=== PATIENT | male | born 2000 | race Caucasian/White ===

== ENCOUNTER 2018-08-16 13:08 | Emergency (ER) | payer BC ==
[2018-08-16 13:46] LABS: PLATELET COUNT 305 10^3/uL (150-400)
--- NOTE | 2018-08-16 14:04 | EDPHY ---
H & P Time Seen by Provider: 08/16/18 13:32 HPI/ROS: CHIEF COMPLAINT: Seizure HISTORY OF PRESENT ILLNESS: The patient is a 18-year-old male who presents emergency department after having seizure. 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 Patient drank heavily last evening. Today he was sitting with his friends. He subsequently had seizure- like activity per their report. He does not recall the event. Patient states he has had 1 previous seizure. This also occurred after a night of heavy drinking. He currently has an MRI scheduled as well as an EEG with Dr. Clayton. The patient denies any drug use. No recent trauma. REVIEW OF SYSTEMS: 10 systems were reveiwed and are negative with the exception of the elements mentioned in the history of present illness. Past Medical/Surgical History: Previous seizure Social history: Alcohol abuse Smoking Status: Never smoked Physical Exam: Vitals noted GENERAL: Well-appearing, in no acute distress, alert. No incontinence. HEENT: Eyes normal to inspection, normal pharynx, no signs of dehydration. No laceration. NECK: Normal, supple. RESPIRATORY: Clear to auscultation bilaterally, no rales, rhonchi or wheezing. CVS: Regular rate and rhythm, no rubs, murmurs, or gallops. ABDOMEN: Soft, nontender, nondistended, no organomegaly. BACK: Normal to inspection, no CVA tenderness. SKIN: Normal color, no rash, warm, dry. No pallor. EXTREMITIES: No pedal edema, no calf tenderness, no Homans sign or cords, no joint swelling. NEURO/PSYCH: Higher functions: Alert and Oriented x3. Normal speech and cognition. Normal mood and affect. Cranial nerves: Normal as tested. Cerebellar: Normal as tested. Good finger to nose, good [id number], normal gait. Peripheral exam: Normal motor exam. Normal sensation. Normal reflexes. Constitutional: Initial Vital Signs Temperature (C) 36.6 C 08/16/18 13:08 Heart Rate 102 H 08/16/18 13:08 Respiratory Rate 16 08/16/18 13:08 Blood Pressure 141/74 H 08/16/18 13:08 O2 Sat (%) 94 08/16/18 13:08 O2 Delivery Mode Room Air Allergies/Adverse Reactions: No Known Allergies Allergy (Verified 08/16/18 13:36) Home Medications: Medication Instructions Recorded levETIRAcetam [Keppra 500 mg (*)] 500 mg PO BID 30 Days tab 08/16/18 Medical Decision Making ED Course/Re-evaluation: In the emergency department I discussed possible etiologies with the patient. I answered all of his questions. Laboratory studies, EKG and head CT were ordered. EKG shows normal sinus rhythm, normal rate, normal axis, normal intervals. There are no ST or T-wave abnormalities. EKG is normal as interpreted by me. White count elevated 18,000. The patient's hematocrit is high at 54. Patient's chemistry panel is notable for a low CO2 of 11 and an elevated anion gap at 33. I discussed case with Dr. Clayton from Neurology. He recommend the patient start on Keppra. Patient was given Keppra 500 mg orally and given a prescription. Head CT: Please refer the dictated report by Dr. Doni Cheney. No acute disease noted. I discussed the results with the patient. I answered all his questions. Patient is aware that he is to start Keppra. Differential Diagnosis: My differential includes but is not limited to seizure, epilepsy, subarachnoid hemorrhage, subdural hematoma, epidural hematoma, alcohol withdrawal seizure, ischemic CVA, hemorrhagic CVA, dissection, mass, malignancy - Data Points Laboratory Results: Laboratory Results 08/16/18 13:00 08/16/18 13:00 08/16/18 08/16/18 13:00 13:00 WBC 18.60 10^3/uL H 10^3/uL (3.80-9.50) RBC 5.84 10^6/uL 10^6/uL (4.40-6.38) Hgb 17.8 g/dL H g/dL (13.7-17.5) Hct 54.5 % H % (40.0-51.0) MCV 93.3 fL fL (81.5-99.8) MCH 30.5 pg pg (27.9-34.1) MCHC 32.7 g/dL g/dL (32.4-36.7) RDW 12.6 % % (11.5-15.2) Plt Count 305 10^3/uL 10^3/uL (150-400) MPV 11.1 fL fL (8.7-11.7) Neut % (Auto) 55.3 % % (39.3-74.2) Lymph % (Auto) 34.1 % % (15.0-45.0) [place] % (Auto) 7.6 % % (4.5-13.0) Eos % (Auto) 1.5 % % (0.6-7.6) Baso % (Auto) 0.5 % % (0.3-1.7) Nucleat RBC Rel Count 0.0 % % (0.0-0.2) Absolute Neuts (auto) 10.29 10^3/uL H 10^3/uL (1.70-6.50) Absolute Lymphs (auto) 6.34 10^3/uL H 10^3/uL (1.00-3.00) Absolute Monos (auto) 1.41 10^3/uL H 10^3/uL (0.30-0.80) Absolute Eos (auto) 0.28 10^3/uL 10^3/uL (0.03-0.40) Absolute Basos (auto) 0.09 10^3/uL 10^3/uL (0.02-0.10) Absolute Nucleated RBC 0.00 10^3/uL 10^3/uL (0-0.01) Immature Gran % 1.0 % % (0.0-1.1) Immature Gran # 0.19 10^3/uL H 10^3/uL (0.00-0.10) RBC/WBC/PLT Morphology TNP Platelet Estimate TNP Sodium 148 mEq/L H mEq/L (135-145) Potassium 4.4 mEq/L mEq/L (3.3-5.0) Chloride 104 mEq/L mEq/L (97-110) Carbon Dioxide 11 mEq/l L mEq/l (22-31) Anion Gap 33 mEq/L H mEq/L (8-16) BUN 10 mg/dL mg/dL (7-23) Creatinine 1.2 mg/dL mg/dL (0.7-1.3) Estimated GFR > 60 Glucose 82 mg/dL mg/dL (70-100) Calcium 10.4 mg/dL mg/dL (8.5-10.4) Ethyl Alcohol 72 mg/dL H mg/dL (0-10) Medications Given: Discontinued Medications Levetiracetam (Keppra) 500 mg PO EDNOW ONE Stop: 08/16/18 14:22 Last Admin: 08/16/18 14:35 Dose: 500 mg Departure - Departure Disposition: Home, Routine, Self-Care Clinical Impression: Seizure Condition: Good Instructions: Recurrent Seizures in Adults (ED) Additional Instructions: Keep your follow-up appointment with Dr. Dimas Clayton. Avoid drinking alcohol. Your head CT and laboratory studies were unremarkable. Referrals: Sol Francois MD [Medical Doctor] - 5-7 days, call for appt. Prescriptions: levETIRAcetam [Keppra 500 mg (*)] 500 mg PO BID 30 Days tab
[2018-08-16] MEDS ORDERED: levETIRAcetam 500 MG TAB PO ONE (14:21)
[2018-08-16 15:12] VITALS: BP 129/72
--- NOTE | 2018-08-16 19:46 | CPEKG ---
Test Reason : OPEN Blood Pressure : / mmHG Vent. Rate : 095 BPM Atrial Rate : 095 BPM P-R Int : 132 ms QRS Dur : 078 ms QT Int : 358 ms P-R-T Axes : 068 092 037 degrees QTc Int : 450 ms Sinus rhythm Borderline right axis deviation ST elev, probable normal early repol pattern Confirmed by Beto Carnes ([id number]) on 08/16/2018 7:46:28 PM Referred By: Confirmed By:Beto Carnes
== END 2018-08-16 15:08 | disposition home or self-care (01) ==
LOC: EDUNIT#
DX: R56.9 Unspecified convulsions (principal)
CPT/HCPCS: G0480

== ENCOUNTER → 2018-08-26 | Outpatient (CLI) | payer BC ==
[~2018-08-26] MED LIST: GADOBUTROL 10 ML VIAL IVP ONE
== END ==
LOC: FIMAGING 08:14
PROVIDERS: ATTEND Psychiatry & Neurology Neurology
DX: R56.9 Unspecified convulsions (principal); J32.9 Chronic sinusitis, unspecified
CPT/HCPCS: A9585

== ENCOUNTER → 2018-08-28 | Outpatient (CLI) | payer BC ==
--- NOTE | 2018-09-02 12:30 | CPEEG ---
DATE OF STUDY: INTERPRETATION: Normal EEG during wakefulness and sleep. There were no potentially epileptogenic ab normalities present in the recording. REPORT: This EEG contains 10 Hz alpha activity to the posterior head regions. There was no abnormal activation at rest, during photic stimulation, or hyperventilation. The patient became drowsy and f ell asleep during the study. There was no abnormal activation during drowsiness, sleep, or during ti mes of arousal. /[id number]/MODL
== END ==
LOC: FCPNEURO 09:43
PROVIDERS: ATTEND Psychiatry & Neurology Neurology
DX: R56.9 Unspecified convulsions (principal)

== ENCOUNTER 2019-01-02 07:50 | Day surgery (SDC) | payer BC, OTHER ==
[2019-01-02] MEDS ORDERED: BUPIVACAINE 0.5% 30 ML SDV ONE (08:10)
[2019-01-02] MEDS ORDERED: LR 1,000 ML IV ONE (08:42)
[2019-01-02] MEDS ORDERED: ceFAZolin 2 GM/DEXTROSE 100 ML IV ONE (09:26)
--- NOTE | 2019-01-02 09:26 | PDHPUP ---
History & Physical Update H&P update statement: This history and physical update is based on an assessment of the patient which was completed after admission or registration (within 24 hours), but prior to the surgery/procedure. H&P update: H&P reviewed & patient examined (No changes in H or P)
[2019-01-02] MEDS ORDERED: fentaNYL 250 MCG/5 ML INJ ONE (09:29)
[2019-01-02] MEDS ORDERED: PROPOFOL/EMULSION 500 MG/50 ML BOTTLE IV ONE (09:30)
--- NOTE | 2019-01-02 09:31 | POSTOPPROG ---
Post Op Note Date of Operation: 01/02/19 Surgeon: Shemar Jaeger Tag Stringer: none Anesthesiologist: Eri Mclaughlin Anesthesia: IV Sedation Pre-op Diagnosis: Right 5th metacarpal fracture Post-op Diagnosis: same Indication: fracture with displacement Procedure: Fluoroscopic reduction and percutaneous K wire fixation Findings: Fracture 5th metacarpal Inf/Abcess present in the surg proc area at time of surgery?: No Depth: Deep Incisional (Fascial) EBL: Minimal Total fluids administered: 600cc Complications: None Specimen(s): none
[2019-01-02] MEDS ORDERED: MIDAZOLAM 2 MG/2 ML VIAL IVP ONE (09:37)
--- NOTE | 2019-01-02 09:40 | PDANEPAE ---
ANE History of Present Illness 18 year old male for ORIF of right 5th metacarpal. O/w seizure disorder. ANE Past Medical History - Cardiovascular History Hx Hypertension: No Hx Arrhythmias: No Hx Chest Pain: No Hx Coronary Artery / Peripheral Vascular Disease: No Hx CHF / Valvular Disease: No Hx Palpitations: No - Pulmonary History Hx COPD: No Hx Asthma/Reactive Airway Disease: No Hx Recent Upper Respiratory Infection: No Hx Oxygen in Use at Home: No Hx Sleep Apnea: No Pulmonary History Comment: occasional tobbaco and marijuana - Neurologic History Hx Cerebrovascular Accident: No Hx Seizures: Yes Hx Dementia: No Neurologic History Comment: 2 seizures in the past, last one on 08/16/18, possible grand mal seizure - Endocrine History Hx Diabetes: No - Renal History Hx Renal Disorders: No - Liver History Hx Hepatic Disorders: No - Neurological & Psychiatric Hx Hx Neurological and Psychiatric Disorders: Yes Neurological / Psychiatric History Comment: hx of depression. last episode 2 yrs ago - Cancer History Hx Cancer: No - Congenital Disorder History Hx Congenital Disorders: No - GI History Hx Gastrointestinal Disorders: No - Surgical History Prior Surgeries: 5th metacarpal repair. penile ANE Review of Systems Review of systems is: negative Review of Systems: - Exercise capacity METS (RN): 6 METS ANE Patient History - Allergies Allergies/Adverse Reactions: No Known Allergies Allergy (Verified 08/16/18 13:36) - Home Medications Home Medications: Ibuprofen 200 mg PO TID 01/02/19 [Last Taken 01/01/19] - NPO status NPO Since - Liquids (Date): 01/01/19 NPO Since - Liquids (Time): 22:00 NPO Since - Solids (Date): 01/01/19 NPO Since - Solids (Time): 22:00 - Smoking Hx Smoking Status: Current some day smoker - Family Anes Hx Family Hx Anesthesia Complications: no ANE Labs/Vital Signs - Vital Signs Blood Pressure: 124/61 Heart Rate: 73 Respiratory Rate: 16 O2 Sat (%): 99 Height: 177.8 cm Weight: 68.039 kg ANE Physical Exam - Airway Neck exam: FROM Mallampati Score: Class 2 Mouth exam: normal dental/mouth exam - Pulmonary Pulmonary: no respiratory distress - Cardiovascular Cardiovascular: regular rate and rhythym - ASA Status ASA Status: II ANE Anesthesia Plan Anesthesia Plan: GA w LMA
[2019-01-02] MEDS ORDERED: PROMETHAZINE HCL 25 MG/ML INJ IVP PRN (10:30)
[2019-01-02] MEDS ORDERED: MEPERIDINE 25 MG/0.5 ML AMP IVP PRN (10:30)
[2019-01-02] MEDS ORDERED: oxyCODONE IR 5 MG TAB PO PRN (10:30)
[2019-01-02] MEDS ORDERED: NALOXONE HCL 0.4 MG/ML INJ IVP PRN (10:30)
[2019-01-02] MEDS ORDERED: ONDANSETRON 4 MG/2 ML VIAL IVP PRN (10:30)
[2019-01-02] MEDS ORDERED: fentaNYL 100 MCG/2 ML INJ ONE (10:47)
[2019-01-02] MEDS: fentaNYL 100 MCG/2 ML INJ IVP PRN ×2 (10:48→11:20)
--- NOTE | 2019-01-02 10:51 | POSTANESTH ---
Post Anesthetic Evaluation Cardiovascular Status: Normal, Stable Respiratory Status: Normal, Stable Level of Consciousness/Mental Status: Can Participate in Eval Pain Control: Adequate, Prn Tx Ordered Nausea/Vomiting Control: Adequate, Prn Tx Ordered Complications Possibly Related to Anesthesia: None Noted
--- NOTE | 2019-01-02 11:15 | GOP ---
[f rep st] OPERATIVE REPORT DATE OF OPERATION: SURGEON: Shemar Jaeger MD PREOPERATIVE DIAGNOSIS: Right 5th metacarpal fracture. POSTOPERATIVE DIAGNOSIS: Right 5th metacarpal fracture. PROCEDURE PERFORMED: Fluoroscopic reduction and K-wire fixation of 5th metacarpal neck fracture. FINDINGS: INDICATIONS: This patient had previously fractured the 5th metacarpal neck and there was some residu al deformity from that injury. The 5th metacarpal was again fractured and it was felt that correctio n of the bony deformity as completely as possible was his best option. DESCRIPTION OF PROCEDURE: Under local infiltration using 0.5% plain Marcaine, a total of 10 cc and w ith monitored anesthesia care and sedation by anesthesiology, the patient's right hand and forearm we re prepped and draped in the usual fashion and under fluoroscopic control the fracture was manipulate d into good position. There was some residual deformity from the previous fracture, but certainly th e recent fracture was lined up anatomically both on AP and lateral views. The fracture in that posit ion was K-wire fixated using a longitudinal 045 K-wire and it was decided to penetrate the dorsal cor vanessa rather than bringing the K-wire right down to the base. This gave more solid fixation and the K- wire was cut off just below skin level at the head of the metacarpal and was palpable back at the sha ft of the metacarpal well proximal to the fracture that would allow had K-wire removal from either en d as needed. The dressing was Xeroform gauze and then fluffs and a Kerlix roll followed by fiberglas s ulnar gutter splint held in place with an Aba bandage. He tolerated the procedure well. Tournique t deflation resulted in immediate pinking of the digits. He was brought to the recovery area. Detai led postoperative instructions were given prior to discharge. A prescription for [place] and Keflex wa s provided. Followup arrangements in the office for about a week postop for dressing and splint makayla ann-marie and cast application extending from the mid forearm down to the tips of the ring and small leavin g thumb, index and long fingers free for an additional 3-4 weeks. /[id number]/MODL
[2019-01-02 12:47] VITALS: BP 144/56
== END 2019-01-02 12:48 | disposition home or self-care (01) ==
LOC: FSGY 07:50
PROVIDERS: ATTEND Specialist
PROC: 0PSP34Z Reposition Right Metacarpal with Internal Fixation Device, Percutaneous Approach (ICD-10-PCS; principal; 2019-01-02 09:00)
DX: S62.336A Displaced fracture of neck of fifth metacarpal bone, right hand, initial encounter for closed fracture (principal)
CPT/HCPCS: C1713; J0690; J2250; J2270; J2704; J3010

== ENCOUNTER 2019-03-23 04:34 | Observation (INO) | payer OTHER ==
[2019-03-23] MEDS ORDERED: LORazepam 2 MG/ML INJ ONE ×2 (04:37→04:40)
[2019-03-23] MEDS ORDERED: ONDANSETRON 4 MG/2 ML VIAL ONE (04:39)
[2019-03-23] MEDS ORDERED: NS 1,000 ML IV ONE ×3 (04:41→05:45)
[2019-03-23] MEDS ORDERED: ONDANSETRON 4 MG/2 ML VIAL IVP ONE (04:41)
[2019-03-23] MEDS ORDERED: levETIRAcetam 1000MG/NACL 100 ML IV ONE (04:42)
[2019-03-23] MEDS ORDERED: LORazepam 2 MG/ML INJ IVP ONE (04:42)
--- NOTE | 2019-03-23 04:47 | EDPHY ---
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 He initially was somewhat postictal upon EMS arrival and then cleared and was able to tell them that he takes Keppra for seizures. During transport by EMS he had another seizure lasting 2 mins generalized tonic- clonic. He arrives to the emergency room with a nasal airway in place he is postictal and somewhat agitated and combative. Unable to obtain history by him. EMS given 5 mg IV Versed in route. He arrives to the emergency room, heart rate 105, pulse ox 94% on nasal cannula 3 L, respiratory rate 16, blood pressure 161/82. He is somewhat agitated. Is reported also by EMS that he has been staying up late and getting very little sleep due to finals and studying, also has been taking Adderall. Roommates report cocaine use alcohol use tonight. Past Medical History: Seizures with seizure disorder on Keppra. Past Surgical History: No recent surgery Social History: [employer] student., reported by roommates cocaine use, as well as alcohol use and alcohol use tonight as well as Adderall. Family History: Noncontributory ROS REVIEW OF SYSTEMS: 10 Systems were reviewed and negative with the exception of the elements mentioned in the history of present illness. Exam Constitutional triage nursing summary reviewed, vital signs reviewed, awake/ alert. Eyes normal conjunctivae and sclera, EOMI, PERRLA. HENT normal inspection, atraumatic, moist mucus membranes, no epistaxis, neck supple/ no meningismus, no raccoon eyes. Respiratory clear to auscultation bilaterally, normal breath sounds, no respiratory distress, no wheezing. Cardiovascular rate normal, regular rhythm, no murmur, no edema, distal pulses normal. Gastrointestinal soft, non-tender, no rebound, no guarding, normal bowel sounds, no distension, no pulsatile mass. Genitourinary no CVA tenderness. Musculoskeletal no midline vertebral tenderness, full range of motion, no calf swelling, no tenderness of extremities, no meningismus, good pulses, neurovascularly intact. Skin pink, warm, & dry, no rash, skin atraumatic. Neurologic awake, alert and oriented x 3, AAOx3, moves all 4 extremities equally, motor intact, sensory intact, CN II-XII intact, normal cerebellar, normal vision, normal speech. Psychiatric normal mood/affect. Heme/Lymph/Immune no lymphadenopathy. Differential Diagnosis: Includes but is not limited to in a particular order breakthrough seizure, epilepsy, status epilepticus, drug intoxication, alcohol intoxication poor sleep leading to seizure. Medical Decision Making: Plan for this patient IV establishment IV fluid bolus , 2 L of fluid, IV 2 mg Ativan, EKG, drug screen, urine, chest x-ray, CT scan head without contrast, IV Keppra. Re-evaluation: ED x-ray chest one view negative for acute cardiopulmonary disease. CT scan head without contrast for seizure: No acute intracranial abnormality, no intracranial bleed. There is noted to be sinus mucosal changes with right maxillary sinus disease. Patient's EKG time 5:16 a.m., sinus rhythm rate of 94, no signs of acute ischemia. Intervals are appropriate. 6:52 a.m.: Patient re-evaluated he is mentating appropriately and answering my questions. He reports to me does have a history of seizures he stop taking his Keppra 2 weeks ago. He denies any drug use today. He did state he had alcohol earlier this evening. He is not sure what happened to him tonight. He tells me feels foggy headed. Plan for this patient today he will be admitted to the hospital given the multiple seizures today and he is off of his Keppra. I have given him 1 g of Keppra here in the emergency room. Additionally he had 2 mg IV Ativan. He has done well. There has been no recurrent seizures or further seizure activity in the emergency room. His vital signs are stable. Heart rate is currently 84, blood pressure 122/72, pulse ox 97%. He is mentating appropriately somewhat sleepy. Hospitalist service as been consult Dr. Kevin, agrees for admission. Neurology should be consult in for him. I did speak to his mom who is in [place] who called worried about him. We discussed that he would be admitted to the hospital for further observation today Source: Patient, EMS Constitutional: Initial Vital Signs Temperature (C) 36.5 C 03/23/19 04:42 Heart Rate 106 H 03/23/19 04:42 Respiratory Rate 20 03/23/19 04:42 Blood Pressure 161/82 H 03/23/19 04:42 O2 Sat (%) 94 03/23/19 04:42 O2 Delivery Mode Nasal Cannula O2 (L/minute) 3 Allergies/Adverse Reactions: No Known Allergies Allergy (Unverified 03/23/19 04:42) Home Medications: Medication Instructions Recorded levETIRAcetam [Keppra 500 mg (*)] 500 mg PO BID #40 tab 03/24/19 Medical Decision Making - Data Points Laboratory Results: Laboratory Results 03/23/19 06:13 03/23/19 06:13 Medications Given: Discontinued Medications Sodium Chloride (Ns) 1,000 mls @ 0 mls/hr IV EDNOW ONE; Wide Open PRN Reason: Protocol Stop: 03/23/19 04:42 Last Admin: 03/23/19 04:49 Dose: 1,000 mls Sodium Chloride (Ns) 1,000 mls @ 0 mls/hr IV EDNOW ONE; Wide Open PRN Reason: Protocol Stop: 03/23/19 04:42 Last Admin: 03/23/19 04:47 Dose: 1,000 mls Levetiracetam (Keppra (Premix)) 100 mls @ 400 mls/hr IV EDNOW ONE Stop: 03/23/19 04:56 Last Admin: 03/23/19 04:50 Dose: 100 mls Sodium Chloride (Ns) 1,000 mls @ 0 mls/hr IV ONCE ONE PRN Reason: Wide Open Stop: 03/23/19 05:46 Last Admin: 03/23/19 05:46 Dose: 1,000 mls Levetiracetam (Keppra) 500 mg PO BID [facility] Stop: 09/19/19 20:59 Last Admin: 03/24/19 09:14 Dose: 500 mg Lorazepam (Ativan Injection) 2 mg IVP EDNOW ONE Stop: 03/23/19 04:43 Last Admin: 03/23/19 04:47 Dose: 2 mg Ondansetron HCl (Zofran) 4 mg IVP EDNOW ONE Stop: 03/23/19 04:42 Last Admin: 03/23/19 04:49 Dose: 4 mg Departure - Departure Disposition: [facility] Inpatient Acute Clinical Impression: Seizure Condition: Fair
[2019-03-23 05:06] LABS: PLATELET COUNT 262 10^3/uL (150-400)
[2019-03-23 05:08] LABS: INR 0.99 (0.83-1.16); PROTIME(PATIENT) 12.7 SEC (12.0-15.0)
[2019-03-23] MEDS ORDERED: ACETAMINOPHEN 325 MG TAB PO PRN (06:44)
[2019-03-23] MEDS ORDERED: ONDANSETRON 4 MG/2 ML VIAL IVP PRN (06:44)
[2019-03-23] MEDS ORDERED: ONDANSETRON DISINTEGRATING 4 MG TAB PO PRN (06:44)
[2019-03-23 07:09] LABS: PLATELET COUNT 134 10^3/uL (150-400)
--- NOTE | 2019-03-23 07:12 | PDGENHP ---
History and Physical - Chief Complaint Seizure - History of Present Illness 22 yo M w/ hx of seizures presents after a seizure. He had a seizure at home witnessed by roommates and EMS was called. He had another seizure en route with EMS. He was sedated with Versed en route and treated with Ativan upon arrival. He was also loaded with Keppra IV. At the time of my evaluation he is post- ictal but arousable. He denies headache or other complaints but falls quickly back asleep when left alone. Per report he stopped taking his Keppra about 2 weeks ago. His last seizure prior to this was in July of 2018. He follows with Dr. Clayton as an outpatient. Case discussed with ED physician Dr. Carter; records reviewed and summarized above. History Information - Allergies/Home Medication List Allergies/Adverse Reactions: No Known Allergies Allergy (Unverified 03/23/19 04:42) Home Medications: Keppra 03/23/19 [Last Taken Unknown] I have personally reviewed and updated: family history, medical history - Past Medical History seizures - Surgical History Reports: no pertinent surgical hx - Family History Additional family history: Asked, denies Review of Systems Review of Systems: ROS: 10pt was reviewed & negative except for what was stated in HPI & below Physical Exam Physical Exam: Temp Pulse Resp BP Pulse Ox 36.5 C 95 16 120/60 93 03/23/19 04:42 03/23/19 06:14 03/23/19 06:14 03/23/19 06:14 03/23/19 06:14 Constitutional: appears nourished, other (Post-ictal) Eyes: PERRL, EOMI Ears, Nose, Mouth, Throat: moist mucous membranes, no oral mucosal ulcers Cardiovascular: regular rate and rhythym, no murmur, rub, or gallop Respiratory: no respiratory distress, clear to auscultation Gastrointestinal: normoactive bowel sounds, soft, non-tender abdomen Skin: warm, normal color Musculoskeletal: full muscle strength, no muscle tenderness Neurologic: CN II-XII Intact, No facial droop Psychiatric: interacting appropriately, not anxious Lab Data & Imaging Review 03/23/19 04:45 03/23/19 06:13 WBC 29.04 10^3/uL (3.80-9.50) H 03/23/19 04:45 RBC 5.31 10^6/uL (4.40-6.38) 03/23/19 04:45 Hgb 16.5 g/dL (13.7-17.5) 03/23/19 04:45 Hct 52.5 % (40.0-51.0) H 03/23/19 04:45 MCV 98.9 fL (81.5-99.8) 03/23/19 04:45 MCH 31.1 pg (27.9-34.1) 03/23/19 04:45 MCHC 31.4 g/dL (32.4-36.7) L 03/23/19 04:45 RDW 11.9 % (11.5-15.2) 03/23/19 04:45 Plt Count 262 10^3/uL (150-400) 03/23/19 04:45 MPV 11.5 fL (8.7-11.7) 03/23/19 04:45 Neut % (Auto) Not Reported 03/23/19 04:45 Lymph % (Auto) Not Reported 03/23/19 04:45 [place] % (Auto) Not Reported 03/23/19 04:45 Eos % (Auto) Not Reported 03/23/19 04:45 Baso % (Auto) Not Reported 03/23/19 04:45 Nucleat RBC Rel Count Not Reported 03/23/19 04:45 Absolute Neuts (auto) Not Reported 03/23/19 04:45 Absolute Lymphs (auto) Not Reported 03/23/19 04:45 Absolute Monos (auto) Not Reported 03/23/19 04:45 Absolute Eos (auto) Not Reported 03/23/19 04:45 Absolute Basos (auto) Not Reported 03/23/19 04:45 Absolute Nucleated RBC Not Reported 03/23/19 04:45 Immature Gran % Not Reported 03/23/19 04:45 Seg Neutrophils % 26.0 % 03/23/19 04:45 Band Neutrophils % 1.0 % 03/23/19 04:45 Lymphocytes % 60.0 % 03/23/19 04:45 Monocytes % 9.0 % 03/23/19 04:45 Eosinophils % 3.0 % 03/23/19 04:45 Basophils % 1.0 % 03/23/19 04:45 Metamyelocytes % 0.0 % 03/23/19 04:45 Myelocytes % 0.0 % 03/23/19 04:45 Promyelocytes % 0.0 % 03/23/19 04:45 Blast Cells % 0.0 % 03/23/19 04:45 Immature Gran # Not Reported 03/23/19 04:45 Absolute Seg Neuts 7.55 10^3/uL (1.70-6.50) H 03/23/19 04:45 Absolute Band Neuts 0.29 10^3/uL (0.00-0.70) 03/23/19 04:45 Absolute Lymphocytes 17.42 10^3/uL (1.00-3.00) H 03/23/19 04:45 Absolute Monocytes 2.61 10^3/uL (0.30-0.80) H 03/23/19 04:45 Absolute Eosinophils 0.87 10^3/uL (0.03-0.40) H 03/23/19 04:45 Absolute Basophils 0.29 10^3/uL (0.02-0.10) H 03/23/19 04:45 Absolute Metamyelocyte 0.00 10^3/mL (0.00-0.00) 03/23/19 04:45 Absolute Myelocytes 0.00 10^3/mL (0.00-0.00) 03/23/19 04:45 Absolute Promyelocytes 0.00 10^3/uL (0.00-0.00) 03/23/19 04:45 Absolute Plasma Cells 0.00 10^3/uL (0.00-0.00) 03/23/19 04:45 Nucleated RBCs 0 /100 WBC (0-0) 03/23/19 04:45 Absolute Blast Cells 0.00 10^3/uL (0.00-0.00) 03/23/19 04:45 Plasma Cells % 0.0 % 03/23/19 04:45 Platelet Estimate ADEQUATE (ADEQ) 03/23/19 04:45 Tear Drop Cells 1+ H 03/23/19 04:45 Oval Macrocytes 2+ H 03/23/19 04:45 PT 12.7 SEC (12.0-15.0) 03/23/19 04:45 INR 0.99 (0.83-1.16) 03/23/19 04:45 APTT 28.8 SEC (23.0-38.0) 03/23/19 04:45 Turbidity REJ 03/23/19 04:45 Sodium 139 mEq/L (135-145) 03/23/19 06:13 Potassium 4.1 mEq/L (3.5-5.2) 03/23/19 06:13 Chloride 112 mEq/L (97-110) H 03/23/19 06:13 Carbon Dioxide 19 mEq/l (22-31) L 03/23/19 06:13 Anion Gap 8 mEq/L (6-14) 03/23/19 06:13 BUN 15 mg/dL (7-23) 03/23/19 06:13 Creatinine 0.9 mg/dL (0.7-1.3) 03/23/19 06:13 Estimated GFR > 60 03/23/19 06:13 Glucose 97 mg/dL (70-100) 03/23/19 06:13 Calcium 7.6 mg/dL (8.5-10.4) L 03/23/19 06:13 Total Bilirubin 0.4 mg/dL (0.1-1.4) 03/23/19 04:45 Conjugated Bilirubin 0.3 mg/dL (0.0-0.5) 03/23/19 04:45 Unconjugated Bilirubin 0.1 mg/dL (0.0-1.1) 03/23/19 04:45 AST 29 IU/L (17-59) 03/23/19 04:45 ALT 27 IU/L (21-72) 03/23/19 04:45 Alkaline Phosphatase 44 IU/L (38-126) 03/23/19 04:45 Total Protein 8.0 g/dL (6.3-8.2) 03/23/19 04:45 Albumin 5.4 g/dL (3.5-5.0) H 03/23/19 04:45 Lipase 74 IU/L (23-300) 03/23/19 04:45 Specimen Hemolysis REJ 03/23/19 04:45 Ethyl Alcohol < 10 mg/dL (0-10) 03/23/19 04:45 Assessment & Plan Assessment: 22 yo M w/ hx of seizure presents with seizure. Plan: 1. Seizure - 2 seizures this evening after stopping his Keppra therapy 2 weeks ago. He follows with Dr. Clayton as an outpatient. Patient now post-ictal but answering questions and without complaint. - Admit for observation - Seizure precautions - S/p Keppra 1 g IV - Neurology consultation placed 2. NAGMA - Likely related to seizure activity 3. Leukocytosis - Improved with fluids; suspect reactive Diet - Regular Code - Full Ppx - Low risk, ambulate TID Dispo - Admit under observation status
--- NOTE | 2019-03-23 07:49 | CPEKG ---
Test Reason : OPEN Blood Pressure : / mmHG Vent. Rate : 094 BPM Atrial Rate : 094 BPM P-R Int : 136 ms QRS Dur : 085 ms QT Int : 369 ms P-R-T Axes : 072 097 029 degrees QTc Int : 462 ms Sinus rhythm Borderline right axis deviation Confirmed by Christopher Santiago ([id number]) on 03/23/2019 7:48:50 AM Referred By: Christopher Santiago Confirmed By:Christopher Santiago
--- NOTE | 2019-03-23 08:32 | HOSPPROG ---
Hospitalist Progress Note Assessment/Plan: 22 yo M w/ hx of seizures presents after a seizure. He had a seizure at home witnessed by roommates and EMS was called. He had another seizure en route with EMS. First encounter, chart reviewed. * Seizure - 2 seizures after stopping his Keppra therapy 2 weeks ago - Dr Clayton to see today * NAGMA - Likely related to seizure activity * Leukocytosis - Improved with fluids -reactive *plan: Dr Clayton to see, he stopped taking Keppra due to mood swings. Reviewed w him use of alcohol also decreases his seizure threshold. He has two finals today he wants to take, but told him I am concerned w having two seizures and getting Ativan, this will impact his ability to think clearly. Subjective: Will is not c/o headache. Feels fine. Objective: Vital Signs Temp Pulse Resp BP Pulse Ox 36.6 C 96 16 120/68 96 03/23/19 07:53 03/23/19 07:53 03/23/19 07:53 03/23/19 07:53 03/23/19 07:53 03/22/19 03/23/19 03/24/19 05:59 05:59 05:59 Intake Total 3000 Balance 3000 PT 12.7 SEC (12.0-15.0) 03/23/19 04:45 INR 0.99 (0.83-1.16) 03/23/19 04:45 - Physical Exam Constitutional: no apparent distress, appears nourished, not in pain Eyes: PERRL Ears, Nose, Mouth, Throat: hearing normal Cardiovascular: regular rate and rhythym Respiratory: no respiratory distress Skin: warm Musculoskeletal: full muscle strength Neurologic: AAOx3 Psychiatric: interacting appropriately ICD10 Worksheet Patient Problems: Problems Problem Status Onset Seizure Acute
--- NOTE | 2019-03-23 12:49 | GCON ---
[f rep st] CONSULTATION NEUROLOGIC CONSULTATION REFERRING PHYSICIAN: Fabby Ayers NP HISTORY: This patient is a 18-year-old whom I have seen in the outpatient setting on 3 different [facility] for history of seizure in the setting of excessive alcohol use and possible other substance ab use. He is here in the hospital for having experienced 2 seizures early this morning, and what was r eported to be use of alcohol, Adderall, and possible cocaine use, which was alleged by roommates. Th e patient says he only had "1 beer." Drug screen is currently pending. On August 07, I saw him for the 1st time. An event occurred in May of 2018, and he had had hea vy alcohol consumption, and his mother found him in the bed having what appeared to be a generalized convulsion with postictal confusion. He is a college zaid and came back to school here. In the pr evious 3 months, he describes some intermittent muscle jerks and head twitching toward 1 side; someti mes his entire body may have a jolt. He has even had some split second episodes of altered awareness . At that time, he said he was binge drinking alcohol on the weekends, and did not report any other toxic exposures except for marijuana. He has subsequently had workup with brain MRI on August 26. That was unremarkable. He had routine EEG which was normal. He then had followup with md Vu er , and he had experienced a 2nd seizure in the setting of alcohol intoxication. He was started on Keppra 500 mg twice daily. He then returned for another visit on March 06. We reviewed that trino angel had not had a seizure for about 6 months, and he said he had decreased his alcohol and was not doin g excessive drinking. He had stopped the medication on his own 3 weeks earlier because he described mood swings on Keppra. We talked about appropriate treatment, and he decided he wanted to stay off t he medication, and we thought we could monitor since a lot of this was associated with alcohol abuse. He now has presented with 2 seizures again, perhaps in the setting of alcohol and stimulant and yg sarai abuse, but clarity of this is difficult because he is a little too lethargic for details. In an y case, he received a loading dose of Keppra in the emergency room of 1000 mg, and is to continue on 500 mg twice daily with p.r.n. Ativan. No recurrent seizures have happened since then. He otherwise has unremarkable past medical history. FAMILY HISTORY: Diabetes, cancer, heart disease. REVIEW OF SYSTEMS: The patient cannot provide me significant review of systems, although his mother says she spoke to him earlier and he knew I was coming to see him. He is denying headache, chest suraj n, palpitations, or shortness of breath, or any specific areas of numbness or weakness. PHYSICAL EXAMINATION: VITAL SIGNS: Blood pressure is 121/59, pulse of 69, respirations 14, temperat ure 37. GENERAL: Lying in the bed. No acute distress. Resting, and only stays awake for me for ab out 30 or 45 seconds before he will fall back asleep, but having no evidence of seizures. NEUROLOGIC : Pupils 3 mm and reactive. Extraocular movements intact. Normal facial sensation and movement. M OTOR: Normal muscle bulk and tone, 5/5 strength as best I can tell, although poor participation with the examination. He localizes to touch in all the extremities. He is oriented, but confused about exactly what happened. He confirmed to me that he did have "1 beer," but says he did not do cocaine. We did not spend time arguing on the issue, and I just told him that the records that we have avail able from roommates report that he did have cocaine exposure, but we do not know that definitively be cause we do not have a drug screen currently available. LABORATORY STUDIES: White count is 12,000. The liver enzymes are normal. Bicarbonate when he came in was 13, and then up to 19 about an hour and a half later. Tox screen shows alcohol less than 10; that was at 0445. Head CT was unremarkable. IMPRESSION: Total unit time of 75 minutes. This patient has a history of seizures and a history of some myoclonic jerks which suggest he may very well have an underlying primary epileptic disorder, al though everything has been confounded by his history of alcohol abuse and then questions of potential abuse of stimulants either in the form of Adderall and/or cocaine exposure, which he currently denie s. In any case, he remains at risk for recurrence with no medication, so he is back on medication no w after a loading dose of Keppra and will continue 500 mg twice daily. Although he said he did not t olerate this very well, I would not change that immediately. This is something that can be done as a n outpatient. I spoke to his mother. The patient has given permission for us to speak freely to her about what is happening. I explained the critical nature of his condition and the need for working toward an appropriate outpatient drug management program, and probably needs to have regular drug scr eens through an mortgage servicing specialist. My partner, Dr. Ez Chandra, will be rounding tomorrow and can f ollow up and make sure the patient is stable and ready for discharge. I will then continue outpatien t management with [facility] and/or making a switch to an alternative agent when he follows up with me as an outpatient. He is not to drive for a minimum of 3 months, and his mother was told that and souravi rmed that knowledge. We will follow up on the results of drug testing. I spoke to the protective services case worker who will try to provide him resources regarding alcohol and substance abuse issues. /[id number]/MODL
--- NOTE | 2019-03-23 17:05 | NEUROPROG ---
Assessment: I have followed up with the patient today at 5:00 p.m.. His drug screen came back negative for any cocaine metabolites are any amphetamine. He continues to tell me that he did not have exposure yesterday and had some marijuana only which was positive on the screen and 1 beer with a negative alcohol screen. He is still feeling tired but no focal deficits. No recurrent seizures. He is tolerating the Keppra so far. I spoke to his mother on the phone and updated her and we will continue to outpatient planning for strategies moving forward assuming he is stable tomorrow for discharge. He can then follow up with me as an outpatient and further adjustments in medication for which we will likely switch him to lamotrigine over the next week or 2 but will continue the Keppra for now. Objective: Vital Signs Temp Pulse Resp BP Pulse Ox 37.1 C 74 16 133/64 H 94 03/23/19 15:14 03/23/19 15:14 03/23/19 15:14 03/23/19 15:14 03/23/19 15:14 03/22/19 03/23/19 03/24/19 05:59 05:59 05:59 Intake Total 3000 Balance 3000 PT 12.7 SEC (12.0-15.0) 03/23/19 04:45 INR 0.99 (0.83-1.16) 03/23/19 04:45 Allergies/Adverse Reactions: No Known Allergies Allergy (Unverified 03/23/19 04:42)
[2019-03-23] MEDS: levETIRAcetam 500 MG TAB PO SCH (20:49)
[2019-03-24 05:10] LABS: PLATELET COUNT 154 10^3/uL (150-400)
[2019-03-24 08:39] VITALS: BP 134/64
[2019-03-24] MEDS: levETIRAcetam 500 MG TAB PO SCH (09:14)
--- NOTE | 2019-03-24 09:18 | HOSPPROG ---
Hospitalist Progress Note Assessment/Plan: 22 yo M w/ hx of seizures presents after a seizure. He had a seizure at home witnessed by roommates and EMS was called. He had another seizure en route with EMS. * Seizure - 2 seizures after stopping his Keppra therapy 2 weeks ago - will follow up w Dr Clayton * NAGMA - Likely related to seizure activity * Leukocytosis - Improved with fluids -reactive *plan: dc home w close f/u with Dr Clayton, a script for Keppra was sent to [facility] Subjective: Will slept well, no complaints. Objective: Vital Signs Temp Pulse Resp BP Pulse Ox 37.2 C 84 16 134/64 H 94 03/24/19 08:00 03/24/19 08:00 03/24/19 08:00 03/24/19 08:00 03/24/19 08:00 Laboratory Results 03/24/19 04:55 03/24/19 04:55 03/23/19 03/24/19 03/25/19 05:59 05:59 05:59 Intake Total 3400 Balance 3400 PT 12.7 SEC (12.0-15.0) 03/23/19 04:45 INR 0.99 (0.83-1.16) 03/23/19 04:45 - Physical Exam Constitutional: no apparent distress, appears nourished Eyes: PERRL Ears, Nose, Mouth, Throat: hearing normal Respiratory: no respiratory distress Skin: warm Musculoskeletal: full muscle strength Neurologic: AAOx3 Psychiatric: interacting appropriately ICD10 Worksheet Patient Problems: Problems Problem Status Onset Seizure Acute
--- NOTE | 2019-03-24 10:02 | ASMTCAGE ---
CAGE Do you feel you ought to Answers: Yes cut down on your drinking or drug use? Do people annoy you by Answers: No criticizing your drinking or drug use? Do you feel guilty about Answers: Yes your drinking or drug use? Do you drink or use drugs Answers: No first thing in the morning (Eye Tube Roller)? Date Signed: 03/24/2019 10:01 AM Electronically Signed By:Raquel Conley
--- NOTE | 2019-03-24 10:03 | NEUROPROG ---
Assessment: 35 min spent with patient and his hospitalist, majority of time spent counseling pt on treatment plan and diagnosis. Please see Dr. Snider notes for full plan. Objective: Vital Signs Temp Pulse Resp BP Pulse Ox 37.2 C 84 16 134/64 H 94 03/24/19 08:00 03/24/19 08:00 03/24/19 08:00 03/24/19 08:00 03/24/19 08:00 Laboratory Results 03/24/19 04:55 03/24/19 04:55 03/23/19 03/24/19 03/25/19 05:59 05:59 05:59 Intake Total 3400 Balance 3400 PT 12.7 SEC (12.0-15.0) 03/23/19 04:45 INR 0.99 (0.83-1.16) 03/23/19 04:45 Allergies/Adverse Reactions: No Known Allergies Allergy (Unverified 03/23/19 04:42)
--- NOTE | 2019-03-24 10:11 | GDS ---
[f rep st] DISCHARGE SUMMARY DISCHARGE DIAGNOSES: 1. Acute seizures x2 secondary to stopping Keppra therapy. 2. Non-anion gap metabolic acidosis. 3. Leukocytosis. CONSULTATION: Dr. Dimas Clayton. Briefly, the patient is a 22-year-old male with a history of seizures. He presented after he had a seizure. He had a seizure at home witnessed by his roommate and EMS was called. He had another one en route. He is known by Dr. Dimas Clayton. The patient has had a history of excessive alcohol use and possible other substance abuse. In talking with the patient, he stopped the Keppra because it causes mood swings. He will follow up with Dr. Clayton in the outpatient setting. He also may be changed to another medication to help with the mood swings. HOSPITAL COURSE: 1. Two witnessed seizures. Resumed him with Keppra. He got an IV loading dose. He has had none further. 2. Non-anion gap metabolic acidosis, resolved. 3. Leukocytosis, almost completely resolved with IV hydration. DISCHARGE CONDITION: Stable. Blood pressure is 134/64, heart rate 84, respiratory rate is 16, O2 sats on room air 94%, temp is 37.2 Celsius. MEDICATIONS AT DISCHARGE: Please see the EMR. DISCHARGE INSTRUCTIONS: 1. No driving for 3 months. 2. Stay on the Keppra. Follow up with Dr. Clayton. 3. Stop alcohol and no drugs. /[id number]/MODL MTDD
--- NOTE | 2019-03-24 10:49 | ASMTDCNOTE ---
Case Management Discharge Discharge Order Complete? Answers: Yes Patient to Obtain Answers: Independently Medications Transportation Arranged Answers: Family/Friends Transport will Pick (Date 03/24/2019 12:00 AM & Time) Family Notified Answers: Yes Notes: by pt Discharge Comments Notes: CM spoke with pt in the room extensively regarding his plan for preventing future seizures. Pt stated his plan to continue taking Keppra and follow up with neurologist if still interested in changing medications. Pt also stated his understanding that he cannot tolerate alcohol or stimulants and needs to moderate his stress levels. Pt completed CAGE screen and pt was given packet on alcohol abuse education and counseling/substance resources provided by [facility] at . Also given information on the "Stages of Change". Pt stated plan to enroll fraternity brothers in this challenge by asking for their support in staying away from triggering substances. Pt declined CM's offer to call his mother. With pt's permission, CM left message for RN Videogame Designer at 's [facility] to follow up with patient. No further CM needs noted at this time. Date Signed: 03/24/2019 10:48 AM Electronically Signed By:Raquel Conley
--- NOTE | 2019-03-24 10:54 | ASDISCHSUM ---
Discharge Information Plan Status:Substance Abuse Referrals Medically Cleared to Leave:03/24/2019 Discharge Date:03/24/2019 CM D/C Disposition:Home, Routine, Self-Care ADT D/C Disposition: Projected Discharge Date:03/24/2019 Transportation at D/C:Friend Discharge Delay Reason: Follow-Up Date:03/24/2019 Discharge Slot: Final Diagnosis:seizure Placement Information Patient Contact Information Contact Name:MOSHE Relationship:Mother Address: Work Phone: City: [facility] Phone: [facility] logo Code: Email: Financial Information Financial Class:HMO and PPO Plans Primary Plan Desc:[employer] NAJMA Primary Plan Number:[id number] Secondary Plan Desc: Secondary Plan Number: Assessment Information LACE LACE Length of stay for Answers: 4-6 days current admission Acuity / Level of Answers: No Care: Did the patient have an inpatient admission? Comorbidities - select Answers: Other Notes: Seizure disorder all that apply # of Emergency department Answers: 1-2 visits in the last 6 months Social determinants Answers: History of substance abuse (ETOH, street drugs, prescription drugs, etc.) Score: 9 Date Signed: 03/24/2019 10:51 AM Electronically Signed By:Raquel Conley CAGE Questionnaire CAGE Do you feel you ought to Answers: Yes cut down on your drinking or drug use? Do people annoy you by Answers: No criticizing your drinking or drug use? Do you feel guilty about Answers: Yes your drinking or drug use? Do you drink or use drugs Answers: No first thing in the morning (Eye Deicer Element Winder Machine)? Date Signed: 03/24/2019 10:01 AM Electronically Signed By:Raquel Conley Case Management Discharge Plan Note Case Management Discharge Discharge Order Complete? Answers: Yes Patient to Obtain Answers: Independently Medications Transportation Arranged Answers: Family/Friends Transport will Pick (Date 03/24/2019 12:00 AM & Time) Family Notified Answers: Yes Notes: by pt Discharge Comments Notes: CM spoke with pt in the room extensively regarding his plan for preventing future seizures. Pt stated his plan to continue taking Keppra and follow up with neurologist if still interested in changing medications. Pt also stated his understanding that he cannot tolerate alcohol or stimulants and needs to moderate his stress levels. Pt completed CAGE screen and pt was given packet on alcohol abuse education and counseling/substance resources provided by [facility] at . Also given information on the "Stages of Change". Pt stated plan to enroll fraternity brothers in this challenge by asking for their support in staying away from triggering substances. Pt declined CM's offer to call his mother. With pt's permission, CM left message for RN Brownell Operator at 's [facility] to follow up with patient. No further CM needs noted at this time. Date Signed: 03/24/2019 10:48 AM Electronically Signed By:Raquel Conley Intervention Information
== END 2019-03-24 10:51 | disposition home or self-care (01) ==
LOC: EDBD → MERGE 06:44 → F3N 07:44
PROVIDERS: ADMIT Student in an Organized Health Care Education/Training Program; ATTEND Internal Medicine
DX: G40.909 Epilepsy, unspecified, not intractable, without status epilepticus (principal); Z91.128 Patient's intentional underdosing of medication regimen for other reason; E86.9 Volume depletion, unspecified; E87.2 Acidosis; D72.829 Elevated white blood cell count, unspecified; Z72.89 Other problems related to lifestyle
CPT/HCPCS: 70450; 71045; 93005; 96361; 96374; 96375; 99285; G0378; 80305; G0480; J1953; J2060; J2405